=== PATIENT | male | born 1975 ===

== ENCOUNTER 2023-07-22 13:40 | Emergency (ER) | payer SELFPAY ==
[~2023-07-22] VITALS: Ht 177.8 cm; Wt 99.0 kg
[2023-07-22 13:42] VITALS: O2SAT 99
[2023-07-22] MEDS: CeFAZolin 1 GM/DEXTROSE 50 ML IV ONE (13:50)
[2023-07-22] MEDS: PERTUSS(ACELL),DIPH,TET VAC/PF 0.5 ML SYRINGE IM. ONE (13:52)
[2023-07-22] MEDS: MORPHINE SULFATE 2 MG/ML SYRINGE IVP ONE (13:52)
[2023-07-22 14:05] LABS: BASOPHILS % (AUTO) 0.2 % (0.0-2.0); EOSINOPHILS % (AUTO) 1.2 % (1.0-6.0); HEMATOCRIT 47.2 % (41-53); HEMOGLOBIN 15.4 g/dL (13.5-17.5); LYMPHOCYTES # (AUTO) 3.1 K/uL (1.0-4.8); LYMPHOCYTES % (AUTO) 26.9 % (22.0-44.0); MEAN CORPUSCULAR HEMOGLOBIN 29.6 pg (26.0-34.0); MEAN CORPUSCULAR HGB CONC 32.6 G/dL (31.0-37.0); MEAN CORPUSCULAR VOLUME 91 fL (80-100); MONOCYTES # (AUTO) 0.9 K/uL (0.1-1.0); MONOCYTES % (AUTO) 7.6 % (2.0-9.0); NEUTROPHILS # (AUTO) 7.5 K/uL (1.8-7.7); NEUTROPHILS % (AUTO) 64.1 % (40.0-70.0); PLATELET COUNT (AUTO) 279 K/uL (150-450); RED CELL DISTRIBUTION WIDTH 14.5 % (11.5-14.5); WHITE BLOOD COUNT (AUTO) 11.7 K/uL (4.5-11.0)
[2023-07-22 14:07] VITALS: TEMP 98.4
[2023-07-22 14:09] VITALS: BP 148/86; PULSE 99; RESP 20
[2023-07-22 14:17] LABS: ANION GAP 9 mmol/L (8-16); CALCIUM, TOTAL 8.8 mg/dL (8.8-10.5); CARBON DIOXIDE 26 mmol/L (22-29); CHLORIDE 104 mmol/L (98-107); CREATININE 1.19 mg/dL (0.60-1.30); GLOMERULAR FILTR. RATE CALC > 60 mL/min (>60); GLUCOSE,RANDOM 85 mg/dL (70-110); POTASSIUM 3.4 mmol/L (3.5-5.1); SODIUM SERUM 139 mmol/L (136-145); UREA NITROGEN, BLOOD 15 mg/dL (7-18)
[2023-07-22 14:21] LABS: INR 0.9 (0.9-1.1); PROTHROMBIN TIME 9.9 SEC (9.4-11.6)
[2023-07-22 14:27] LABS: TROPONIN I-HIGH SENSITIVITY 11 ng/L (<76)
[2023-07-22 14:30] LABS: B-TYPE NATRIURETIC PEPTIDE 11 pg/mL (0-100)
[2023-07-22 14:42] LABS: ALANINE AMINOTRANSFERASE 71 U/L (12-78); ALBUMIN 3.9 g/dL (3.4-5.0); ALKALINE PHOSPHATASE 119 U/L (46-116); ASPARTATE AMINOTRANSFERASE 46 U/L (15-37); BILIRUBIN,TOTAL 0.2 mg/dL (0.1-1.0); CREATINE KINASE, TOTAL ONLY 214 U/L (39-308); TOTAL PROTEIN, SERUM 7.7 g/dL (6.4-8.2)
== END 2023-07-22 14:28 | disposition short-term general hospital (02) ==
LOC: EMS 13:44
DX: S31.010A Laceration without foreign body of lower back and pelvis without penetration into retroperitoneum, initial encounter (principal); X58.XXXA Exposure to other specified factors, initial encounter; Y93.89 Activity, other specified; Y92.89 Other specified places as the place of occurrence of the external cause; Y99.8 Other external cause status
CPT/HCPCS: 99291; 96365; 96375; 80053; 82550; 83880; 84484; 85025; 85610; 85730; 86850; 86900; 86901; 71045; 90715; 93005; 90471; 36415; J2270